=== PATIENT | male | born 1950 | race Caucasian/White ===

== ENCOUNTER 2019-05-10 17:47 | Emergency (ER) | payer MEDICARE ==
[~2019-05-10] VITALS: Ht 182.8 cm; Wt 77.1 kg
[2019-05-10] MEDS ORDERED: CEPHALEXIN500 M1 PO (19:16)
[2019-05-10] MEDS ORDERED: ANTIBIOTIC28.4 GM T (19:16)
== END 2019-05-10 19:27 | disposition home or self-care (01) ==
LOC: ED 17:47
DX: S61.214A Laceration without foreign body of right ring finger without damage to nail, initial encounter (principal); Z23 Encounter for immunization; W27.8XXA Contact with other nonpowered hand tool, initial encounter; Y93.89 Activity, other specified; Y92.89 Other specified places as the place of occurrence of the external cause; Y99.8 Other external cause status